=== PATIENT | female | born 2000 | race Hispanic/Latino ===

== ENCOUNTER → 2023-03-29 | Emergency (ER) | payer OTHER ==
[~2023-03-29] MED LIST: CEFTRIAXONE 1000 MG/VIAL ONE; NA CHLORIDE 0.9% 1,000 ML ONE
--- NOTE | 2023-03-29 19:49 | RAD REPORT ---
EXAM DESCRIPTION: RAD - Chest Single View - 03/29/2023 7:39 pm CLINICAL HISTORY: CHEST PAIN COMPARISON: No comparisons FINDINGS: Lines: None. Lungs: No evidence of edema or pneumonia. Pleural: No significant pleural effusions or pneumothorax. Cardiac: The heart size is within normal limits. Mediastinum: Within normal limits. Bones: No acute fractures. Other: None IMPRESSION: No acute cardiopulmonary disease.
[2023-03-29 20:03] LABS: Specific Gravity 1.009 (1.005-1.030); Urine Bacteria None Seen /HPF (<20); Urine Bilirubin NEGATIVE (Negative); Urine Blood Negative (Negative); Urine Clarity Turbid (Clear); Urine Color Colorless (Yellow); Urine Glucose NEGATIVE (Negative); Urine Protein NEGATIVE (Negative); Urine RBC <5 /HPF (None Seen); Urine Urobilinogen Normal (Normal)
[2023-03-29 20:04] LABS: Barbiturates NEGATIVE (NEGATIVE); Benzodiazepines NEGATIVE (NEGATIVE); Cocaine NEGATIVE (NEGATIVE); METHAMPHETAM NEGATIVE (NEGATIVE); Methadone NEGATIVE (NEGATIVE); Opiates NEGATIVE (NEGATIVE); Phencyclidine NEGATIVE (NEGATIVE); THC Cannibis NEGATIVE (NEGATIVE)
[2023-03-29 20:08] LABS: Absolute Lymphocytes (CBC) 1.4 K/uL (0.7-4.9); Hematocrit 32.5 % (36.0-45.0); Lymphocytes % 8.8 % (15.3-44.8); MCV 71.9 fL (80-100); MPV 8.4 fL (7.6-11.3); Platelets 313 thou/uL (152-406); RBC Red Blood Cell Count 4.53 M/uL (3.86-4.86)
[2023-03-29 20:14] LABS: Specific Gravity 1.009 (1.005-1.030)
[2023-03-29 20:22] LABS: SARS-CoV-2 Antigen Rapid Res Negative (Negative)
[2023-03-29 20:34] LABS: ALT/SGPT 20 U/L (13-56); AST/SGOT 7 U/L (15-37); Albumin 3.6 g/dL (3.4-5.0); Alkaline Phosphatase 59 U/L (45-117); BUN Blood Urea Nitrogen 10 mg/dL (7-18); Bicarbonate 25 mEq/L (21-32); Bilirubin Total 0.3 mg/dL (0.2-1.0); Glomerular Filtration Rate 130 ml/min (=/>90); Glucose Level 94 mg/dL (74-106); Magnesium 1.9 mg/dL (1.6-2.4); Potassium 3.7 mEq/L (3.5-5.1); Protein, Total 7.3 g/dL (6.4-8.2); Sodium Level 135 mEq/L (136-145)
[2023-03-29 20:35] LABS: Bilirubin Direct < 0.1 mg/dL (0-0.2); Bilirubin Indirect, Calculated ND mg/dL (0.2-0.8); Troponin High Sensitivity < 3.0 pg/mL (<58.9)
--- NOTE | 2023-03-29 23:19 | RAD REPORT ---
EXAM DESCRIPTION: CTChest Abdomen Pelvis W Cont - 03/29/2023 11:12 pm CLINICAL HISTORY: fever, weakness, lower abd pain COMPARISON: No comparisons TECHNIQUE: CT of the chest, abdomen, and pelvis was performed. All CT scans are performed using dose optimization technique as appropriate and may include automated exposure control or mA/KV adjustment according to patient size. FINDINGS: Thorax: Chest Wall: No abnormal mass Lungs: No acute abnormality. Pleura: No effusions or pneumothorax. Staci/Mediastinum: No lymphadenopathy. Aorta/Pulmonary Arteries: Unremarkable Heart: Normal size. Abdomen/Pelvis: Liver: Subcentimeter low-density lesions in the liver are too small to characterize but statistically benign. Biliary: No biliary ductal dilatation. Stomach: No significant focal abnormality. Duodenum: No significant focal abnormality. Pancreas: No significant abnormality. Spleen: No significant abnormality. Adrenal: No suspicious lesions. Kidney/ureter: No hydronephrosis. No renal calculi. Retroperitoneum: No retroperitoneal adenopathy. Vascular: No aneurysm. Bowel: No significant focal abnormality. No appendicitis. Peritoneum: Small volume of pleural free fluid which is likely physiologic. Bladder: Mild bladder wall thickening. Reproductive: No adnexal masses. Involuting cyst in the right adnexa. Bones: No acute fracture. Other: n/a IMPRESSION: No acute findings within the chest, abdomen, or pelvis. Mild circumferential bladder wal l thickening which indicate cystitis. Pelvic free fluid is likely physiologic. Normal appendix. No ac nez perce findings in the chest.
--- NOTE | 2023-03-29 23:31 | EDPHYS ---
Physician Documentation [facility] Name: Paty Faye Age: 22 yrs Sex: Female : 2000 Arrival Date: 03/29/2023 Time: 18:21 Bed 19 Private MD: ED Physician Wiley Rashid HPI: 03/29 19:58 This 22 yrs old Female presents to ER via Ambulatory with complaints of Fast sb4 heart rate, Shortness Of Breath, Dizziness. 19:58 The patient presents with a history of heart racing. Context: The symptoms occur at sb4 rest. Onset: The symptoms/episode began/occurred today. Associated signs and symptoms: Pertinent positives: chest pain, lightheadedness, nausea, SOB, Pertinent negatives: cough, fever. The patient has been recently seen by a physician: the patient's primary care provider, earlier today. patient reports feeling weak, fatigued, nauseated for about 1 month now. she states today she started feeling chest pain/palpitations associated with shortness of breath. she saw her PCP who ordered outpatient labs however mom was concerned and wanted her to be evaluated immediately. Historical: - Allergies: 18:42 No Known Allergies; cm10 - Home Meds: 18:42 None [Active]; cm10 - PMHx: 18:42 None; cm10 - PSHx: 18:42 None; cm10 - Immunization history:: Adult Immunizations unknown. - Social history:: Smoking status: Patient denies any tobacco usage or history of. ROS: 19:58 Constitutional: Negative for fever, chills, and weight loss, sb4 19:58 Constitutional: Positive for fatigue, weight loss, 19:58 Cardiovascular: Positive for chest pain, palpitations, 19:58 Respiratory: Positive for shortness of breath, 19:58 Neuro: Positive for dizziness, weakness, 19:58 All other systems are negative, Exam: 19:58 Constitutional: This is a well developed, well nourished patient who is awake, alert, sb4 and in no acute distress. Head/Face: Normocephalic, atraumatic. Eyes: Extra-ocular motions intact. Periorbital areas with no swelling, redness, or edema. ENT: Mucous membranes moist. Respiratory: Lungs have equal breath sounds bilaterally, clear to auscultation and percussion. No rales, rhonchi or wheezes noted. No increased work of breathing, no retractions or nasal flaring. Abdomen/GI: Soft, non-tender, no distension. Skin: Warm, dry with normal turgor. Normal color with no rashes, no lesions, and no evidence of cellulitis. MS/ Extremity: Pulses equal, no cyanosis. Neurovascular intact. Full, normal range of motion. Neuro: Awake and alert, GCS 15, oriented to person, place, time, and situation. Motor strength 5/5 in all extremities. Sensory grossly intact. 19:58 Cardiovascular: Rate: normal, Rhythm: regular, Pulses: no pulse deficits are appreciated, Heart sounds: normal, Vital Signs: 18:40 BP 114 / 71; Pulse 122; Resp 18; Temp 98.8; Pulse Ox 100% ; Weight 48.53 kg; Height 5 cm10 ft. 1 in. ; Pain 5/10; 19:45 BP 115 / 76; Pulse 108; Resp 16; Pulse Ox 100% on R/A; km8 20:00 BP 106 / 71; Pulse 107; Resp 16; Pulse Ox 100% on R/A; km8 20:30 BP 110 / 69; Pulse 97; Resp 16; Pulse Ox 100% ; km8 21:00 BP 118 / 69; Pulse 105; Resp 16; Pulse Ox 99% on R/A; km8 21:30 BP 111 / 69; Pulse 105; Resp 18; Pulse Ox 100% ; km8 22:00 BP 107 / 70; Pulse 105; Resp 18; Pulse Ox 100% on R/A; km8 22:30 BP 108 / 70; Pulse 106; Resp 18; Pulse Ox 100% on R/A; km8 23:11 BP 130 / 77; Pulse 110; Resp 18; Pulse Ox 100% on R/A; km8 18:40 Body Mass Index 20.22 (48.53 kg, 154.94 cm) cm10 18:40 Pain Scale: Adult cm10 [place] Coma Score: 19:45 Eye Response: spontaneous(4). Motor Response: obeys commands(6). Verbal Response: km8 oriented(5). Total: 15. MDM: 18:36 Patient medically screened. sb4 19:58 Differential diagnosis: arrythmia, dehydration, stress disorder, anemia, sb4 hyperthyroidism, diabetes, viral illness. 21:30 ED course: patient reports negative strep test at PCP earlier todya. sb4 03/30 00:11 Data reviewed: vital signs, nurses notes, lab test result(s), EKG, radiologic studies, sb4 and as a result, I will discharge patient. Consideration of Admission/Observation Escalation of care including admission/observation considered. Historians other than the Patient: Parent: mother. Counseling: I had a detailed discussion with the patient and/or guardian regarding the historical points, exam findings, and any diagnostic results supporting the discharge/admit diagnosis, lab results, radiology results, to return to the emergency department if symptoms worsen or persist or if there are any questions or concerns that arise at home. 03/29 18:47 Order name: Basic Metabolic Panel; Complete Time: 20:44 sb4 03/29 18:47 Order name: CBC with Diff; Complete Time: 20:11 sb4 03/29 18:47 Order name: D-Dimer; Complete Time: 20:08 sb4 03/29 18:47 Order name: LFT's; Complete Time: 20:44 sb4 03/29 18:47 Order name: Magnesium; Complete Time: 20:44 sb4 03/29 18:47 Order name: Troponin HS; Complete Time: 20:44 sb4 03/29 18:47 Order name: TSH; Complete Time: 20:44 sb4 03/29 18:47 Order name: UDS; Complete Time: 20:06 sb4 03/29 18:47 Order name: Test, Urine; Complete Time: 20:14 sb4 03/29 18:47 Order name: UAM; Complete Time: 20:06 sb4 03/29 19:56 Order name: SARS RAPID; Complete Time: 20:23 sb4 03/29 19:56 Order name: Flu; Complete Time: 20:34 sb4 03/29 21:18 Order name: Blood Culture Adult (2) sb4 03/29 21:30 Order name: Add On-Lab sb4 03/29 21:52 Order name: [place] Screen; Complete Time: 22:30 EDMS 03/29 23:25 Order name: Urine Culture sb4 03/29 18:47 Order name: XRAY Chest (1 view); Complete Time: 19:49 sb4 03/29 22:31 Order name: CT Chest, Abdomen, Pelvis - W/Contrast; Complete Time: 23:24 sb4 03/29 18:47 Order name: EKG; Complete Time: 18:49 sb4 03/29 18:47 Order name: Cardiac monitoring; Complete Time: 19:54 sb4 03/29 18:47 Order name: EKG - Nurse/Tech; Complete Time: 19:54 sb4 03/29 18:47 Order name: IV Saline Lock; Complete Time: 19:54 sb4 03/29 18:47 Order name: Labs collected and sent; Complete Time: 19:54 sb4 03/29 18:47 Order name: O2 Per Protocol; Complete Time: 19:54 sb4 03/29 18:47 Order name: O2 Sat Monitoring; Complete Time: 19:54 sb4 EC/28 19:58 Rate is 106 beats/min. Rhythm is regular, Sinus tachycardia. MT interval is normal at sb4 142 msec. QRS interval is normal at 90 msec. QT interval is normal at 320 msec. No Q waves. T waves are Normal. No ST changes noted. Clinical impression: Normal ECG, Sinus tachycardia, and No evidence of ischemia. Interpreted by me. Reviewed by me. Administered Medications: 20:04 Drug: NS 0.9% IV 1000 ml IV at 1 bolus Per protocol; 1000 mL bolus Route: IV; Rate: 1 km8 bolus; Site: right antecubital; 20:45 Follow up: IV Status: Completed infusion; IV Intake: 1000ml km8 21:47 Drug: NS 0.9% IV 1000 ml IV at 1 bolus Per protocol; 1000 mL bolus Route: IV; Rate: 1 km8 bolus; Site: right antecubital; 23:36 Follow up: IV Status: Completed infusion; IV Intake: 1000ml km8 23:36 Drug: Rocephin IV 1 grams IV at calculated rate once; Given slow IV push per pharmacy km8 instructions Route: IV; Rate: calculated rate; Site: right antecubital; Disposition Summary: 03/29/23 23:31 Discharge Ordered Notes: Location: Home sb4 Problem: new sb4 Symptoms: have improved sb4 Condition: Stable sb4 Diagnosis - UTI/ Urinary tract infection, site not specified sb4 - Tachycardia, unspecified sb4 Followup: sb4 - With: Emergency Department - When: As needed - Reason: Trouble breathing, Worsening of condition Discharge Instructions: - Discharge Summary Sheet sb4 - Urinary Tract Infection, Adult, [id number] sb4 Forms: - Work release form jb4 - Medication Reconciliation Form sb4 - Thank You Letter sb4 - Antibiotic Education sb4 - Prescription Opioid Use sb4 - Patient Portal Instructions sb4 - Leadership Thank You Letter sb4 Prescriptions: - Bactrim DS 800-160 mg Oral Tablet - take 1 tablet ORAL route every 12 hours for 10 days; 20 tablet; Refills: 0, sb4 Product Selection Permitted Addendum: 03/31/2023 21:15 I was immediately available for consultation during this patient's visit. I did not e c2 personally see the patient or guide the patient's care. . Signatures: Dispatcher [employer] Radha Potter PA-C PA-C sb4 Soraida Kaur, LORAINE RN cm10 Wiley Rashid MD MD ec2 Ade Santos RN RN km8 Corrections: (The following items were deleted from the chart) 03/29 20:44 19:42 COVID-19/FLU A+[id number] ordered. EDKY EDMS
--- NOTE | 2023-03-29 23:31 | ER ---
Nurse's Notes [facility] Name: Paty Faye Age: 22 yrs Sex: Female : 2000 Arrival Date: 03/29/2023 Time: 18:21 Bed 19 Private MD: Diagnosis: UTI/ Urinary tract infection, site not specified;Tachycardia, unspecified Presentation: 03/29 18:40 Chief complaint: Patient states: seen at PCP today due to having dizziness and chest cm10 pain and was told that she had a fast heart rate (145). Pt states that she is no longer feeling dizzy but is having some pressure in her chest. Coronavirus screen: Vaccine status: Patient reports being unvaccinated. Client denies travel out of the [place] in the last 14 days. Ebola Screen: Patient denies travel to an Ebola-affected area in the 21 days before illness onset. No symptoms or risks identified at this time. Initial Sepsis Screen: Does the patient meet any 2 criteria? No. Patient's initial sepsis screen is negative. Does the patient have a suspected source of infection? No. Patient's initial sepsis screen is negative. Risk Assessment: Do you want to hurt yourself or someone else? Patient reports no desire to harm self or others. Onset of symptoms was March 29, 2023. 18:40 Method Of Arrival: Ambulatory cm10 18:40 Acuity: KIRIT 3 cm10 Historical: - Allergies: 18:42 No Known Allergies; cm10 - Home Meds: 18:42 None [Active]; cm10 - PMHx: 18:42 None; cm10 - PSHx: 18:42 None; cm10 - Immunization history:: Adult Immunizations unknown. - Social history:: Smoking status: Patient denies any tobacco usage or history of. Screenin:45 [facility] ED Fall Risk Assessment (Adult) History of falling in the last 3 months, km8 including since admission No falls in past 3 months (0 pts) Confusion or Disorientation No (0 pts) Intoxicated or Sedated No (0 pts) Impaired Gait No (0 pts) Mobility Assist Device Used No (0 pt) Altered Elimination No (0 pt) Score/Fall Risk Level 0 - 2 = Low Risk Oriented to surroundings, Maintained a safe environment, Educated pt \T\ family on fall prevention, incl call for assistance when getting out of bed, Assessed \T\ reinforced patient's understanding of fall precautions. Abuse screen: Denies threats or abuse. Denies injuries from another. Nutritional screening: No deficits noted. Tuberculosis screening: No symptoms or risk factors identified. Assessment: 19:45 General: Appears in no apparent distress. comfortable, Behavior is calm, cooperative, km8 appropriate for age. Pain: Complains of pain in chest Pain currently is 3 out of 10 on a pain scale. Neuro: [place] Agitation-Sedation Scale (RASS): 0 - Alert and Calm Level of Consciousness is awake, alert, obeys commands, Oriented to person, place, time, situation. Cardiovascular: Reports chest pain, palpitations, Capillary refill < 3 seconds Patient's skin is warm and dry. Rhythm is sinus tachycardia. Respiratory: Airway is patent Respiratory effort is even, unlabored, Breath sounds are clear bilaterally. GI: No signs and/or symptoms were reported involving the gastrointestinal system. : No signs and/or symptoms were reported regarding the genitourinary system. EENT: No signs and/or symptoms were reported regarding the EENT system. Derm: Skin is intact, Skin is dry, Skin is normal, Skin temperature is warm. Musculoskeletal: No signs and/or symptoms reported regarding the musculoskeletal system. Range of motion: intact in all extremities. 21:00 Reassessment: Patient appears in no apparent distress at this time. No changes from km8 previously documented assessment. Patient and/or family updated on plan of care and expected duration. Pain level reassessed. Patient is alert, oriented x 3, equal unlabored respirations, skin warm/dry/pink. 22:17 Reassessment: Patient appears in no apparent distress at this time. No changes from km8 previously documented assessment. Patient and/or family updated on plan of care and expected duration. Pain level reassessed. Patient is alert, oriented x 3, equal unlabored respirations, skin warm/dry/pink. 23:15 Reassessment: Patient appears in no apparent distress at this time. No changes from km8 previously documented assessment. Patient and/or family updated on plan of care and expected duration. Pain level reassessed. Patient is alert, oriented x 3, equal unlabored respirations, skin warm/dry/pink. Vital Signs: 18:40 BP 114 / 71; Pulse 122; Resp 18; Temp 98.8; Pulse Ox 100% ; Weight 48.53 kg; Height 5 cm10 ft. 1 in. ; Pain 5/10; 19:45 BP 115 / 76; Pulse 108; Resp 16; Pulse Ox 100% on R/A; km8 20:00 BP 106 / 71; Pulse 107; Resp 16; Pulse Ox 100% on R/A; km8 20:30 BP 110 / 69; Pulse 97; Resp 16; Pulse Ox 100% ; km8 21:00 BP 118 / 69; Pulse 105; Resp 16; Pulse Ox 99% on R/A; km8 21:30 BP 111 / 69; Pulse 105; Resp 18; Pulse Ox 100% ; km8 22:00 BP 107 / 70; Pulse 105; Resp 18; Pulse Ox 100% on R/A; km8 22:30 BP 108 / 70; Pulse 106; Resp 18; Pulse Ox 100% on R/A; km8 23:11 BP 130 / 77; Pulse 110; Resp 18; Pulse Ox 100% on R/A; km8 18:40 Body Mass Index 20.22 (48.53 kg, 154.94 cm) cm10 18:40 Pain Scale: Adult cm10 [place] Coma Score: 19:45 Eye Response: spontaneous(4). Motor Response: obeys commands(6). Verbal Response: km8 oriented(5). Total: 15. ED Course: 18:25 Patient arrived in ED. mr 18:27 Radha Bolton [facility]C [facility] sb4 18:27 Wiley Rashid MD is Attending Physician. sb4 18:42 Triage completed. cm10 18:42 Arm band placed on Patient placed in an exam room, on a stretcher. cm10 19:41 XRAY Chest (1 view) In Process Unspecified. EDMS 19:45 Patient has correct armband on for positive identification. Placed in gown. Bed in low km8 position. Call light in reach. Side rails up X 1. Client placed on continuous cardiac and pulse oximetry monitoring. NIBP monitoring applied. Door closed. Noise minimized. Warm blanket given. 19:45 No provider procedures requiring assistance completed. Patient maintains SpO2 km8 saturation greater than 95% on room air. 19:54 Inserted saline lock: 20 gauge in right antecubital area, using aseptic technique. km8 Blood collected. 20:18 Tom, Ade, RN is Primary Nurse. km8 21:47 Blood Culture Adult (2) Sent. km8 21:47 Inserted saline lock: 22 gauge in left antecubital area, using aseptic technique. Blood km8 collected. 23:14 CT Chest, Abdomen, Pelvis - W/Contrast In Process Unspecified. EDMS 23:46 IV discontinued, intact, bleeding controlled, No redness/swelling at site. Pressure jb4 dressing applied. Administered Medications: 20:04 Drug: NS 0.9% IV 1000 ml IV at 1 bolus Per protocol; 1000 mL bolus Route: IV; Rate: 1 km8 bolus; Site: right antecubital; 20:45 Follow up: IV Status: Completed infusion; IV Intake: 1000ml km8 21:47 Drug: NS 0.9% IV 1000 ml IV at 1 bolus Per protocol; 1000 mL bolus Route: IV; Rate: 1 km8 bolus; Site: right antecubital; 23:36 Follow up: IV Status: Completed infusion; IV Intake: 1000ml km8 23:36 Drug: Rocephin IV 1 grams IV at calculated rate once; Given slow IV push per pharmacy km8 instructions Route: IV; Rate: calculated rate; Site: right antecubital; Medication: 19:45 VIS not applicable for this client. km8 Intake: 20:45 IV: 1000ml; Total: 1000ml. km8 23:36 IV: 1000ml; Total: 2000ml. km8 Outcome: 23:31 Discharge ordered by MD. sb4 23:46 Discharged to home ambulatory, with family, jb4 23:46 Condition: stable 23:46 Discharge instructions given to patient, Instructed on discharge instructions, follow up and referral plans. medication usage, Demonstrated understanding of instructions, follow-up care, medications, Prescriptions given X 1, 23:46 Patient left the ED. jb4 Signatures: Dispatcher [employer] EDHI Lizzy Martínez, Reg Reg mr Jak Stock, RN RN [email or web address] Radha Bolton, PARyanC PA-C Soraida Douglas, RN RN cm10 Ade Santos, RN RN km8
[2023-03-30 04:14] VITALS: TEMP 98.8
[2023-03-30 04:41] VITALS: BP 130/77; O2SAT 100
--- NOTE | 2023-03-30 15:29 | EKG ---
Test Date: 2023-03-29 Test Time: 19:40:19 Distribution System Operator: CB MEASUREMENT RESULTS: Intervals: Rate: 106 SC: 142 QRSD: 90 QT: 320 QTc: 425 [place]ell: P: 80 SC: 142 QRS: 76 T: 68 INTERPRETIVE STATEMENTS: Sinus tachycardia Otherwise normal ECG No previous ECG available for comparison Electronically Signed On 03-30-23 15:26:56 ADJUNCT FACULTY FOR MEDICAL TERMINOLOGY by Tyshawn Paula
== END ==
LOC: ER 18:21
DX: N39.0 Urinary tract infection, site not specified (principal); R00.0 Tachycardia, unspecified; R07.9 Chest pain, unspecified; Z11.52 Encounter for screening for COVID-19
CPT/HCPCS: 96361; 93005; 87040 ×2; 87088; 85025; 81001; 87086; 80048; 36415; 83735; 86308; 81025; 85379; 80076; 84443; 84484; 80307; 87804 ×2; 71260; 74177; 71045; 96374; 99285; 87811; Q9967; J7030 ×2; J0696